=== PATIENT | male | born 1965 | race Caucasian/White ===

== ENCOUNTER 2024-12-28 15:41 | Emergency (ER) | payer OTHER, SELFPAY ==
--- NOTE | ~2024-12-28 | CT_ITS ---
EXAMINATION: CT abdomen pelvis wo con DATE: 12/28/2024 18:00 INDICATION: flank pain TECHNIQUE: Computed tomography (CT) of the abdomen and pelvis was performed without intravenous contr ast. Automated exposure control and iterative reconstruction technique were employed. The dose-length product was 299.88 mGy-cm. COMPARISON: 08/03/2007. FINDINGS: Lower thorax: Small volume pericardial fluid. Liver: Normal. Biliary/Gallbladder: Gallbladder is normal. No bile duct dilation. Pancreas: No mass or duct dilation. Spleen: Normal. Adrenals:No mass. Kidneys: 6 mm calcification at the left UPJ. Moderate left pelviectasis and caliectasis. Moderate lef t perinephric stranding. Mild right perinephric stranding. Multiple additional nonobstructing bilater al renal calcifications. GI tract: Small hiatal hernia. Uncomplicated duodenal diverticulum. No small or large bowel dilation. Normal appendix. Diverticulosis without diverticulitis. Mesentery/Peritoneum: No ascites, mass, or free air. Retroperitoneum: No mass. Pelvis: Normal urinary bladder. Mild prostatomegaly.. Soft Tissues: Small uncomplicated appearing fat-containing umbilical and bilateral inguinal hernias. Bones: No acute osseous finding. IMPRESSION: Trace pericardial fluid. 6 mm left UPJ stone causing moderate obstructive uropathy. Reviewed, dictated and finalized at location K.
--- NOTE | ~2024-12-28 | XR_ITS ---
EXAM: XR abdomen/kub 1V DATE: 12/28/2024 18:37 HISTORY: Kidney stone . COMPARISON: 08/03/2007; CT abdomen pelvis 12/28/2024. FINDINGS: Clear lung bases. Normal bowel gas pattern. No organomegaly. Right midpole calcification. 5 mm calcification at the level of L3-4 corresponding to the left UPJ stone seen in the prior CT. The left inferior pole nephrolith is not confidently identified. Lumbar degenerative disc disease. IMPRESSION: 5 mm left UPJ stone. Reviewed, dictated and finalized at location K. IMPRESSION: 5 mm left UPJ stone.
[2024-12-28 16:04] VITALS: BP 173/119; PULSE 77; RESP 20; TEMP 36.1; O2SAT 97
[2024-12-28 17:15] LABS: Hematocrit 41.8 % (42.0-52.0); Hemoglobin 14.2 g/dL (14.0-18.0); Immature Granulocyte Percent A 0.2 % (0-0.5); Lymphocytes Absolute Auto 1.61 K/mm3 (0.9-3.2); Mean Corpuscular HGB Conc 34.0 g/dl (32-36); Mean Corpuscular Hemoglobin 30.3 pg (26-34); Mean Corpuscular Volume 89.3 fl (80-100); Nucleated Red Blood Cells Absolute Auto 0.000 K/mm3 (0.0-0.012); Nucleated Red Blood Cells Perc 0.0 % (0.0-0.2); Platelet Count Result 209 k/mm3 (150-375); Red Blood Count 4.68 M/mm3 (4.6-6.20); White Blood Count 9.4 K/mm3 (4.5-10.0)
[2024-12-28] MEDS: ONDANSETRON INJ 4 MG/2 ML VIAL IV PUSH (17:26)
[2024-12-28 17:27] LABS: INR 1.0; Prothrombin Time 13.1 Seconds (11.1-14.7)
[2024-12-28 17:28] LABS: Partial Thromboplastin Time 27.2 Seconds (22.3-36.8)
[2024-12-28 17:31] VITALS: BP 169/97; PULSE 97; RESP 18; O2SAT 99
[2024-12-28 17:34] LABS: Add Urine Microscopic? YES; Appearance Urine Clear (Clear); Glucose Urine UA Trace mg/dL (Negative); Leukocyte Esterase Ur Negative LEU/UL (Negative); Nitrate Urine Negative (Negative); Non Pathogenic Casts 0-2; Specific Grav Ur 1.020 (1.001-1.035)
[2024-12-28 17:37] LABS: Alanine Aminotransferase 20 U/L (6-50); Albumin Level 4.3 g/dL (3.5-5.1); Alkaline Phosphatase 49 U/L (38-126); Anion Gap 6 mmol/L (4-12); Aspartate Amino Transferase 25 U/L (17-59); Bilirubin,Total 0.9 mg/dL (0.2-1.3); Blood Urea Nitrogen 22 mg/dL (9-20); Calcium 9.1 mg/dL (8.4-10.2); Carbon Dioxide 27 mmol/L (22-30); Chloride 101 mmol/L (98-107); Estimated CRCL calculation 47 ml/min; Estimated Glomerular Filt Rate 42; Glucose 115 mg/dL (65-110); Potassium 4.1 mmol/L (3.4-5.0); Sodium 134 mmol/L (137-145); Total Protein 7.6 g/dL (6.3-8.2)
[2024-12-28] MEDS: LACTATED RINGERS 1,000 ML 999 ML IV CONT (17:47)
[2024-12-28] MEDS: HYDROmorphone HCL INJ (*CRX) 2 MG/ML VIAL 1 MG IV PUSH (17:50)
--- NOTE | 2024-12-28 18:20 | ED.GENADULT ---
HPI - General Adult General Chief complaint: Back Pain/Injury Stated complaint: left back pain Time Seen by Provider: 12/28/24 16:52 History of Present Illness HPI narrative: 59-year-old male presented to the emergency department for evaluation for left flank pain. Patient does have a prior history of kidney stones approximately 10 years ago. Patient suspects he was not able to pass the stone that time and did have lithotripsy done. Patient began having has current left flank pain Monday and the pain did resolve on Monday and then came back again today. Patient states the pain does radiate to his left lower quadrant. Related Data Allergies Allergy/AdvReac Type Severity Reaction Status Date / Time No Known Allergies Allergy Verified 12/28/24 17:32 Review of Systems Review of Systems: All systems reviewed & are unremarkable except as noted in HPI and below PMFSH Past Medical History Medical History BMI 28.0-28.9,adult Onychomycosis Tinea corporis Skin cancer screening Screening for prostate cancer Mood altered Anxiety and depression Mixed hyperlipidemia BMI 27.0-27.9,adult Family History Family History Father Malignant neoplasm of prostate Scoliosis Social History Social History (Updated 10/03/24 @ 11:03 by Emilia Isabel) Smoking status: Never smoker Alcohol intake: current Do You Feel Safe in your Home?: Yes Lack of Transportation: No Lack of Food: Never True Current Housing: I Have Housing Concerned About Future Housing: No Difficulty Paying Gas/Electric Bills: No Difficulty Paying for Meds: No Currently Unemployed: No Education: Bachelor's Degree Difficulty w/ Childcare or Family Care: No Exam Narrative: APPEARANCE: Uncomfortable pain. HEAD: normocephalic, atraumatic. EYES: PERRLA/EOMI, conjunctivae clear. NOSE: Normal no drainage EARS:TMS clear with good light reflex. THROAT: Pharynx clear, no exudate. NECK: Supple. No adenopathy, no masses. RESPIRATORY: Airway patent, respirations nonlabored. Clear to auscultation bilaterally, no rales, rhonchi, wheezing. CARDIOVASCULAR: Regular rate and rhythm without murmurs rubs or gallops. ABDOMINAL: Left CVA pain without significant tenderness to palpation, left lower quadrant pain without significant tenderness to palpation MUSCULOSKELETAL: Moves all extremities. Strength/ROM intact, No edema, No calf tenderness. NEURO: Alert. Cranial nerves II through XII intact. Grossly intact SKIN: Warm, dry. Normal Color Course Vital Signs Vital signs: Vital Signs Temperature 97 F L 12/28/24 16:04 Pulse Rate 77 12/28/24 16:04 Respiratory Rate 20 12/28/24 16:04 Blood Pressure 173/119 H 12/28/24 16:04 Pulse Oximetry 97 12/28/24 16:04 Oxygen Delivery Room Air 12/28/24 16:04 Temperature 97 F L 12/28/24 16:04 Pulse Rate 78 12/28/24 18:42 Respiratory Rate 20 12/28/24 18:42 Blood Pressure 150/94 H 12/28/24 18:42 Pulse Oximetry 95 12/28/24 18:42 Oxygen Delivery Room Air 12/28/24 16:04 Medical Decision Making MDM Narrative Medical decision making narrative: 59-year-old male present to the emergency department for evaluation for left flank pain. Patient is currently afebrile with no leukocytosis hemoglobin 14.2. INR 1.1. Patient does have a mild NIKITA with a creatinine of 1.68. Patient states he was dehydrated from being ceiling. Patient is still making urine. Patient was treated with a L of lactated Ringer's. Patient was also treated with 1 mg of IV Dilaudid 4 mg of IV Zofran. Patient does feel improved with treatment. Patient does have hematuria on his UA with no underlying evidence of infection. Patient does have a 6 mm UPJ left-sided ureteral calculi. Discussed that the stone was unlikely to pass and patient will most likely need a procedure to help pass the stone. Patient prefers to have outpatient follow-up with Urology on Monday. He will be provided medications for pain control and nausea control for home and he and his were educated on reasons to return to the emergency department. Differential Diagnosis Differential Diagnosis: Stone, urinary tract infection, septic calculi, colitis, diverticular Vital Signs Vital Signs: Vital Signs Temperature 97 F L 12/28/24 16:04 Pulse Rate 77 12/28/24 16:04 Respiratory Rate 20 12/28/24 16:04 Blood Pressure 173/119 H 12/28/24 16:04 Pulse Oximetry 97 12/28/24 16:04 Oxygen Delivery Room Air 12/28/24 16:04 Temperature 97 F L 12/28/24 16:04 Pulse Rate 78 12/28/24 18:42 Respiratory Rate 20 12/28/24 18:42 Blood Pressure 150/94 H 12/28/24 18:42 Pulse Oximetry 95 12/28/24 18:42 Oxygen Delivery Room Air 12/28/24 16:04 Lab Data Lab results reviewed: Yes I reviewed the patient's lab results. 12/28/24 17:10 12/28/24 17:10 Labs: Lab Results 12/28/24 12/28/24 Range/Units 17:10 17:24 WBC 9.4 (4.5-10.0) K/mm3 RBC 4.68 (4.6-6.20) M/mm3 Hgb 14.2 (14.0-18.0) g/dL Hct 41.8 L (42.0-52.0) % MCV 89.3 (80-100) fl MCH 30.3 (26-34) pg MCHC 34.0 (32-36) g/dl RDW 13.8 (11.5-14.5) % Plt Count 209 (150-375) k/mm3 MPV 9.9 (7.4-10.4) fl Immature Gran % (Auto) 0.2 (0-0.5) % Neut % (Auto) 73.9 H (45.5-73.1) % Lymph % (Auto) 17.2 L (18.3-44.2) % [place] % (Auto) 7.3 (2.6-8.5) % Eos % (Auto) 1.0 (0-4.4) % Baso % (Auto) 0.4 (0.2-1.2) % Lymph # (Auto) 1.61 (0.9-3.2) K/mm3 [place] # (Auto) 0.7 H (0.1-0.6) K/mm3 Eos # (Auto) 0.1 (0-0.3) K/mm3 Baso # (Auto) 0.0 (0.0-0.1) K/mm3 Abs Immat Gran (auto) 0.02 (0.00-0.031) K/mm3 Absolute Neuts (auto) 6.9 H (1.3-6.7) K/mm3 Absolute Nucleated RBC 0.000 (0.0-0.012) K/mm3 Nucleated RBC % 0.0 (0.0-0.2) % PT 13.1 (11.1-14.7) Seconds INR 1.0 APTT 27.2 (22.3-36.8) Seconds Sodium 134 L (137-145) mmol/L Potassium 4.1 (3.4-5.0) mmol/L Chloride 101 (98-107) mmol/L Carbon Dioxide 27 (22-30) mmol/L Anion Gap 6 (4-12) mmol/L BUN 22 H (9-20) mg/dL Creatinine 1.68 H (0.7-1.3) mg/dL Estim Creat Clear Calc 47 ml/min Estimated GFR 42 L (59 - ) Glucose 115 H (65-110) mg/dL Calcium 9.1 (8.4-10.2) mg/dL Total Bilirubin 0.9 (0.2-1.3) mg/dL AST 25 (17-59) U/L ALT 20 (6-50) U/L Alkaline Phosphatase 49 (38-126) U/L Total Protein 7.6 (6.3-8.2) g/dL Albumin 4.3 (3.5-5.1) g/dL Urine Color Yellow (Yellow) Urine Appearance Clear (Clear) Urine pH 7.5 (5.0-9.0) Ur Specific [place] 1.020 (1.001-1.035) Urine Protein Negative (Negative) mg/dL Urine Glucose (UA) Trace H (Negative) mg/dL Urine Ketones Negative (Negative) mg/dL Ur Blood (Man) 1+ H (Negative) Urine Nitrate Negative (Negative) Urine Bilirubin Negative (Negative) Urine Urobilinogen 1.0 (<2.0) mg/dL Leukocyte Esterase Rfl Negative (Negative) CHIKA/UL Urine RBC 6-10 H (0-2) /hpf Urine WBC 0-5 (0-3) /hpf Ur Squamous Epith Cells None seen (Few) /hpf Urine Bacteria None seen /hpf Urine Casts 0-2 Imaging Data Radiologist's impression: Impressions Abdomen/Pelvis CT 12/28/24 18:01 IMPRESSION: Trace pericardial fluid. 6 mm left UPJ stone causing moderate obstructive uropathy. Abdomen X-Ray 12/28/24 18:40 IMPRESSION: 5 mm left UPJ stone. Discharge Plan Discharge Clinical Impression: Calculus, ureteral Patient Disposition: Home Condition: Stable Instructions: Antibiotic Form, Kidney Stones (ED), Renal Colic (ED), How to Strain Your Urine (ED), Flank Pain (ED) Additional Instructions: You were offered admission for pain control but you preferred to go home with medications for pain control and to have outpatient follow-up with Urology. Strain your urine as instructed. Zofran for nausea control. [place] as needed for pain control. Flomax as directed to help you pass the stone. If you have any worsening symptoms including fever or uncontrolled pain then return to the emergency department. Have close follow-up with Urology. Patient Language: South African Prescriptions: New hydrocodone-acetaminophen 5-325 mg tablet 1 tablet PO Q12H PRN (Reason: pain) Qty: 14 0RF tamsulosin [Flomax] 0.4 mg capsule 0.4 mg PO DAILY 14 Days Qty: 14 0RF ondansetron 4 mg tablet,disintegrating 4 mg PO Q8H PRN (Reason: nausea and vomiting) Qty: 14 0RF Follow-up/Referrals: William Lora MD [Physician] - Juan Carlos Lovelace MD [Primary Care Provider] -
[2024-12-28] MEDS: HYDROcodone/acetaminophen (*CRX) 10-325 MG TABLET 1 TAB PO (18:40)
[2024-12-28] MEDS: TAMSULOSIN HCL 0.4 MG CAPSULE PO (18:40)
[2024-12-28 18:42] VITALS: BP 150/94; PULSE 78; RESP 20; O2SAT 95
== END 2024-12-28 19:03 | disposition home or self-care (01) ==
PROVIDERS: Emergency Provider Emergency Medicine; PCP Family Medicine
DX: N20.1 Calculus of ureter (principal); E78.2 Mixed hyperlipidemia; F41.8 Other specified anxiety disorders
CPT/HCPCS: 36415; 74018; 74176; 80053; 81001; 85025; 85610; 85730; 96361; 96374; 96375; 99284; A9270; J1171; J2405; J7120

== ENCOUNTER 2024-12-30 13:51 | Outpatient (CLI) | payer OTHER, SELFPAY ==
--- NOTE | ~2024-12-30 | XR_ITS ---
XR abdomen/kub 1V 12/30/2024 14:05 Indication: Preop ESWL Procedure: KUB Comparison: 12/28/2024 Findings: Bowel gas pattern nonobstructive. There are stones in the lower pole left kidney. Bowel gas pattern nonobstructive. There is a possible left ureteral stone at the L4 level. There is calcificat ion pelvis which may represent a bladder stone located centrally. Moderate lumbar spondylosis. Impression: 1: Left nephrolithiasis with possible left ureteral bladder stones. Reviewed, dictated and finalized at location A. Impression: 1: Left nephrolithiasis with possible left ureteral bladder stones.
== END 2024-12-30 13:52 | disposition home or self-care (01) ==
PROVIDERS: PCP Family Medicine; Visit Provider Urology
DX: N20.0 Calculus of kidney (principal)
CPT/HCPCS: 74018

== ENCOUNTER 2025-01-03 00:11 | Day surgery (SDC) | payer OTHER, SELFPAY ==
[2024-12-31 11:48] VITALS: BMI 28.5
--- NOTE | 2024-12-31 11:55 | PC.NURSE ---
Report to the Outpatient Waiting Room, entrance under the green pavilion located off [facility], at time _1030_ on date _[id number]_. Planned Procedure Time: _1230_.? Time changes happen often and if your time is changed the preop area will call you the afternoon before. - You and your visitor will be asked to self-screen and do not enter if you have any COVID symptoms. Please call surgeon if you need to reschedule. - A mask is optional within the hospital at this time. Patients may have clear liquids (water, carbonated beverages, clear teas, apple juice) until 3 hours prior to surgery with a maximum of 20 ounces. - No food from midnight until time of surgery and no smoking, or chewing tobacco (or any form of nicotine). No chewing gum, candy or mints. Take only the following medications with a SIP of water on the morning of surgery: ___Ok to use hydrocodone or zofran if needed.____ DO NOT STOP ANY OF YOUR OTHER PRESCRIPTION MEDICATIONS PRIOR TO SURGERY EXCEPT THE FOLLOWING Hold all vitamins and supplements for 3 days per anesthesiologist. Medications to discontinue per physician Date to take last dose Please no make-up, nail guyanese, hairspray, perfume, deodorant, or body powder the day of surgery.? No jewelry (including any body piercings) or valuables the day of surgery, leave them at home.? Please take a shower or bath the night before, or the morning of, surgery with an antibacterial soap.? Wear comfortable, loose fitting clothing.? - Jewelry must be removed prior to entering the operating room.? Rings and piercings that are not removed may be cut off. - The hospital will not accept responsibility for valuables.? - Please leave all valuables, including medications, at home the day of surgery. If you are going home after surgery, a licensed delivery motorcycle driver must drive you home.? - NO public transportation without another adult if you receive anesthesia. - We recommend that an adult stay with you for 24 hours following discharge. - We also recommend that you do not drive, make important decision, drink alcoholic beverages, or take any drugs that were not prescribed by your health care provider for at least 24 hours after your discharge time. Follow any additional instructions given to you from your surgeon. Telephone instructions given to __Chris___and asked if any additional questions and then verbalized understanding. Patient advised to call surgeon office or pre surgery nurse liaison [phone] if any additional questions.
[2025-01-03] VITALS (10 sets, daily range): BP systolic 110–142; BP diastolic 65–95; PULSE 75–97; RESP 12–17; TEMP 36.2–36.4; O2SAT 97–100; BMI 28.2
--- NOTE | ~2025-01-03 | XR_ITS ---
XR abdomen/kub 1V 01/03/2025 11:04 Indication: Preop ESWL Procedure: KUB Comparison: 12/30/2024 Findings: There are bilateral renal stones. There is a left proximal ureteral stone at the L4-5 level . Bowel gas pattern nonobstructive. Moderate colonic fecal loading. There are pelvic phleboliths. Impression: 1: Bilateral renal and left ureterolithiasis. Reviewed, dictated and finalized at location B. Impression: 1: Bilateral renal and left ureterolithiasis.
--- NOTE | 2025-01-03 06:19 | WPDHPUPDATE1 ---
History and Physical Update Update Date/Time: 01/03/25 06:19 History and Physical has been reviewed, including an updated exam of the patient. There are NO changes in the patient's condition. Risks, benefits, and alternatives have been discussed and questions answered. Patient agrees to proceed with procedure.
[2025-01-03] MEDS: LACTATED RINGERS 1,000 ML 30 ML IV CONT ×2 (11:30→14:10)
--- NOTE | 2025-01-03 12:01 | WPDANESEPPF ---
Anes - Initial Pre Proc Eval Procedure: Operation Date: 01/03/25 12:30 Proposed Procedures p Left Extracorporeal Shock Wave Lithotripsy - Tunde Finney MD Date/Time: 01/03/25 12:01 Surgeon: Tunde Finney MD Pre Op Diagnosis: Lt Kidney Stone Patient Data Age: 59 Gender: M Height: 1.83 m Weight: 94.4 kg Last Vital Signs Temp 36.4 C 01/03/25 11:15 Pulse 82 01/03/25 11:15 Resp 16 01/03/25 11:15 BP 125/72 01/03/25 11:15 Pulse Ox 97 01/03/25 11:15 O2 Del Method Room Air 01/03/25 11:15 Allergies Allergy/AdvReac Type Severity Reaction Status Date / Time No Known Allergies Allergy Verified 01/03/25 11:50 Home Medications ?Medication ?Instructions ?Recorded ?Confirmed ?Type hydrocodone 5 mg-acetaminophen 325 1 tablet PO Q12H PRN pain #14 tabs 12/28/24 12/31/24 Rx mg tablet ondansetron 4 mg disintegrating 4 mg PO Q8H PRN nausea and 12/28/24 01/03/25 Rx tablet vomiting #14 tabs tamsulosin 0.4 mg capsule (Flomax) 0.4 mg PO DAILY 14 days #14 caps 12/28/24 01/03/25 Rx Patient hx anesthesia problems: none Family hx anesthesia problems: none Results Review: All pre-operative results and documents have been reviewed as part of the pre-operative evaluation. COUNTS INCLUDE 234 BEDS AT THE [facility] Past Medical History Medical History BMI 28.0-28.9,adult Onychomycosis Tinea corporis Skin cancer screening Screening for prostate cancer Mood altered Anxiety and depression Mixed hyperlipidemia BMI 27.0-27.9,adult Family History Family History Father Malignant neoplasm of prostate Scoliosis Social History Social History Smoking status: Never smoker Tobacco type: cigars Additional smoking assessment comments: 1 or 2 a year Alcohol intake: current Do You Feel Safe in your Home?: Yes Lack of Transportation: No Lack of Food: Never True Current Housing: I Have Housing Concerned About Future Housing: No Difficulty Paying Gas/Electric Bills: No Difficulty Paying for Meds: No Currently Unemployed: No Education: Bachelor's Degree Difficulty w/ Childcare or Family Care: No Living arrangements: with family Spiritual care concerns: No Anes - Eval Final PreProcedure Day of Procedure 01/03/25 12:01 Patient weight: overweight Heart: regular rate and rhythm Lungs: clear to auscultation Airway: Mallampati scale class II Neurological: alert and oriented Last oral intake: >/= 8 hours ASA classification: II Emergent: no Anesthetic plan: proceed Anesthesia type and monitoring: general LMA and standard monitoring Results Review: All pre-operative results and documents have been reviewed as part of the pre-operative evaluation. Informed Consent: The patient's anesthetic plan and its attendant risks and benefits were discussed with the patient/family/POA. Questions were solicited and answers provided to the satisfaction of the patient/family/POA.
[2025-01-03] MEDS: ceFAZolin 2 GM in SODIUM CHLORIDE 0.9% IV 50 ML 100 ML IVPB (13:11)
--- NOTE | 2025-01-03 13:28 | W.PM.PROC2 ---
Procedure Note - Detailed Date of Procedure 01/03/25 Pre-op Diagnosis Left ureteral stone Post-op Diagnosis Same Procedure Performed Left ESWL Surgeon Tunde Finney MD Anesthesia General Description of Procedure The patient was brought to the operative suite where he was placed in the supine position on the Dornier lithotripsy table. The focal point of the lithotripter was placed at a 5-6mm left mid-ureteral calculus. A total of 3000 shocks were delivered at a power setting of 2-5. There appeared to be good fragmentation of the stone. The patient tolerated the procedure well and was taken to the recovery room in good condition. Drains No Packing No Pathology Yes Complications No immediate complications Disposition PACU
--- NOTE | 2025-01-03 14:12 | ECG_ITS ---
Test Date: 2025-01-03 14:19:25 Measurements Intervals [place] Rate: 101 P: 79 ME: 204 QRS: 13 QRSD: 98 T: 56 QT: 376 QTc: 489 Interpretive Statements SINUS RHYTHM WITH OCCASIONAL SUPRAVENTRICULAR PREMATURE COMPLEXES AND VENTRICULAR TRIPLETS AND VENTRICULAR COUPLETS CANNOT R/O SEPTAL INFARCT, AGE INDETERMINATE ABNORMAL ECG No previous ECG available for comparison Electronically Signed On 01-03-2025 14:24:45 CDT by Remberto Zuluaga D.O.
[2025-01-03 14:31] LABS: Alanine Aminotransferase 18 U/L (6-50); Albumin Level 3.4 g/dL (3.5-5.1); Alkaline Phosphatase 46 U/L (38-126); Anion Gap 6 mmol/L (4-12); Aspartate Amino Transferase 20 U/L (17-59); Bilirubin,Total 0.7 mg/dL (0.2-1.3); Blood Urea Nitrogen 19 mg/dL (9-20); Calcium 8.6 mg/dL (8.4-10.2); Carbon Dioxide 24 mmol/L (22-30); Chloride 107 mmol/L (98-107); Estimated CRCL calculation 88 ml/min; Estimated Glomerular Filt Rate > 60; Glucose 123 mg/dL (65-110); Potassium 4.4 mmol/L (3.4-5.0); Sodium 137 mmol/L (137-145); Total Protein 6.5 g/dL (6.3-8.2)
--- NOTE | 2025-01-03 14:52 | SUR.PHASEI ---
1430: Dr. Caballero notified of EKG results. 1440: Dr Nevarez at bedside to assess patient and EKG. Patient having frequent PVCs in couplets and triplets. Per Dr. Nevarez patient is okay to go next door to outpatient as long as magnesium is WNL. 1448: Dr Caballero at bedside assessing patient and rhythm. Per Dr. Caballero, patient is okay to d/c home.
[2025-01-03 14:58] LABS: Magnesium 1.8 mg/dL (1.6-2.3)
--- NOTE | 2025-01-03 14:59 | SUR.PHASEI ---
Dr. Nevarez notified face to face of mag of 1.8. Per roman OWUSU for patient to d/c home.
== END 2025-01-03 15:50 | disposition home or self-care (01) ==
PROVIDERS: Anesthesiology; PCP Family Medicine; Visit Provider Urology
PROC: (CPT 50590; principal; 2025-01-03 12:30)
DX: N20.1 Calculus of ureter (principal)
CPT/HCPCS: 50590; 36415; 74018; 80053; 83735; 93005; J0690; J2003; J2405; J2704; J3010; J7120

== ENCOUNTER 2025-01-13 11:14 | Outpatient (CLI) | payer OTHER, SELFPAY ==
--- NOTE | ~2025-01-13 | XR_ITS ---
XR abdomen/kub 1V 01/13/2025 11:30 Indication: Renal stone Procedure: KUB Comparison: 01/03/2025 Findings: There are bilateral renal stones. There is a left UPJ stone. Bowel gas pattern nonobstructi ve. Moderate-severe lumbar spondylosis. Impression: 1: Probable left UPJ stone at the L2-3 level. Bilateral nephrolithiasis. Reviewed, dictated and finalized at location A. Impression: 1: Probable left UPJ stone at the L2-3 level. Bilateral nephrolithiasis.
== END 2025-01-13 11:15 | disposition home or self-care (01) ==
PROVIDERS: PCP Family Medicine; Visit Provider Urology
DX: N20.1 Calculus of ureter (principal)
CPT/HCPCS: 74018

== ENCOUNTER 2025-04-18 00:01 | Day surgery (SDC) | payer OTHER, SELFPAY ==
[2025-04-10 09:31] VITALS: BMI 28.5
[2025-04-18 07:32] VITALS: BP 127/88; PULSE 90; RESP 18; TEMP 36.3; O2SAT 98
[2025-04-18] MEDS: LACTATED RINGERS 1,000 ML 150 ML IV CONT (07:42)
--- NOTE | 2025-04-18 08:33 | PM.IMHP ---
H&P: HPI History of Present Illness Date/Time: 04/18/25 08:33 Chief Complaint: Screening colonoscopy Narrative: This is the patient's 2nd screening colonoscopy. There are no GI symptoms and there is no family history of colorectal cancer. Review of Systems Review of Systems: All systems reviewed & are unremarkable except as noted in HPI and below PMFSH Past Medical History Medical History BMI 28.0-28.9,adult Onychomycosis Tinea corporis Skin cancer screening Screening for prostate cancer Mood altered Anxiety and depression Mixed hyperlipidemia BMI 27.0-27.9,adult Family History Family History Father Malignant neoplasm of prostate Scoliosis Social History Social History (Updated 01/14/25 @ 10:02 by Sushma Hung MA) Smoking status: Current some day smoker Tobacco type: cigars Additional smoking assessment comments: 1 or 2 a year Alcohol intake: never Substance use: never Substance use type: does not use Do You Feel Safe in your Home?: Yes Lack of Transportation: No Lack of Food: Never True Current Housing: I Have Housing Concerned About Future Housing: No Difficulty Paying Gas/Electric Bills: No Difficulty Paying for Meds: No Currently Unemployed: No Education: Bachelor's Degree Difficulty w/ Childcare or Family Care: No Living arrangements: with family Spiritual care concerns: No Meds Home Medications and Allergies Home Medications ?Medication ?Instructions ?Recorded ?Confirmed ?Type atorvastatin 20 mg tablet 20 mg PO QPM 04/18/25 04/18/25 History carvedilol 3.125 mg tablet 3.125 mg PO Q12H 04/18/25 04/18/25 History losartan 25 mg tablet 25 mg PO DAILY 04/18/25 04/18/25 History Allergies Allergy/AdvReac Type Severity Reaction Status Date / Time No Known Allergies Allergy Verified 04/18/25 07:31 Vital Signs Vital Signs - 24 hr 04/18/25 07:32 Temperature 97.3 F L Pulse Rate 90 Respiratory Rate 18 Blood Pressure 127/88 Pulse Oximetry 98 Oxygen Delivery Room Air Exam Const: General: cooperative and healthy appearing Resp: Effort & Inspection: normal respiratory effort and able to speak in complete sentences Auscultation: clear to auscultation bilaterally Cardio: Rate: regular rate Rhythm: regular rhythm GI: Inspection: normal to inspection GI Palp: No No hepatosplenomegaly present Auscultation: normal bowel sounds Rectal Exam: deferred Skin: General skin exam: normal color Psych: Appearance: grossly normal Mental Status: mental status grossly normal Assessment and Plan Assessment and plan (1) Encounter for screening colonoscopy: Code(s): Z12.11 - Encounter for screening for malignant neoplasm of colon Status: Acute Assessment and Plan: The patient is deemed a good candidate for the procedure. Consent signed. Will proceed.
--- NOTE | 2025-04-18 08:37 | WPDANESEPPF ---
Anes - Initial Pre Proc Eval Procedure: Operation Date: 04/18/25 08:30 Proposed Procedures p Screening Colonoscopy - Jcarlos Raines MD Date/Time: 04/18/25 08:37 Surgeon: Jcarlos Raines MD Pre Op Diagnosis: Personal hx of colon polyps Patient Data Age: 59 Gender: M Height: 1.83 m Weight: 95.2 kg Last Vital Signs Temp 36.3 C L 04/18/25 07:32 Pulse 90 04/18/25 07:32 Resp 18 04/18/25 07:32 BP 127/88 04/18/25 07:32 Pulse Ox 98 04/18/25 07:32 O2 Del Method Room Air 04/18/25 07:32 Allergies Allergy/AdvReac Type Severity Reaction Status Date / Time No Known Allergies Allergy Verified 04/18/25 07:31 Home Medications ?Medication ?Instructions ?Recorded ?Confirmed ?Type atorvastatin 20 mg tablet 20 mg PO QPM 04/18/25 04/18/25 History carvedilol 3.125 mg tablet 3.125 mg PO Q12H 04/18/25 04/18/25 History losartan 25 mg tablet 25 mg PO DAILY 04/18/25 04/18/25 History Patient hx anesthesia problems: none Family hx anesthesia problems: none Results Review: All pre-operative results and documents have been reviewed as part of the pre-operative evaluation. FOR[facility]LY [facility], [facility] Past Medical History Medical History BMI 28.0-28.9,adult Onychomycosis Tinea corporis Skin cancer screening Screening for prostate cancer Mood altered Anxiety and depression Mixed hyperlipidemia BMI 27.0-27.9,adult Family History Family History Father Malignant neoplasm of prostate Scoliosis Social History Social History (Updated 01/14/25 @ 10:02 by Sushma Hung MA) Smoking status: Current some day smoker Tobacco type: cigars Additional smoking assessment comments: 1 or 2 a year Alcohol intake: never Substance use: never Substance use type: does not use Do You Feel Safe in your Home?: Yes Lack of Transportation: No Lack of Food: Never True Current Housing: I Have Housing Concerned About Future Housing: No Difficulty Paying Gas/Electric Bills: No Difficulty Paying for Meds: No Currently Unemployed: No Education: Bachelor's Degree Difficulty w/ Childcare or Family Care: No Living arrangements: with family Spiritual care concerns: No Anes - Eval Final PreProcedure Day of Procedure 04/18/25 08:37 Patient weight: overweight Heart: regular rate and rhythm Lungs: clear to auscultation Airway: Mallampati scale class II Neurological: alert and oriented Last oral intake: >/= 8 hours ASA classification: II Emergent: no Anesthetic plan: proceed Anesthesia type and monitoring: general GIVS and standard monitoring Results Review: All pre-operative results and documents have been reviewed as part of the pre-operative evaluation. Informed Consent: The patient's anesthetic plan and its attendant risks and benefits were discussed with the patient/family/POA. Questions were solicited and answers provided to the satisfaction of the patient/family/POA.
--- NOTE | 2025-04-18 08:59 | S_PTH ---
PATIENT: Juvencio Shields LOC: [facility] U#:[id number] AGE/SX: 59/M ROOM: RE04/18/[address]: Jcarlos Raines MD : 1965 BED: DIS: 04/18/2025 SPEC #: [id number] RECD: 04/18/25 11:17 STATUS: ADA REQ #: [id number] RICO: 04/18/25 08:[address]: Jcarlos Raines DEPT: [facility] Surgical RECD BY: Nisa Loomis ENTERED: 04/18/25 11:18 SP TYPE: Surgical OTHR DR: Juan Carlos Lovelace MD Tissues: A - Colon Polypectomy Procedures: Hematoxylin and Eosin Stain Gross and Microscopic Level 4
[2025-04-18 09:00] VITALS: BP 120/74; PULSE 83; RESP 20; O2SAT 97
[2025-04-18 09:10] VITALS: BP 109/75; PULSE 77; RESP 23; O2SAT 98
[2025-04-18 09:20] VITALS: BP 114/78; PULSE 73; RESP 16; O2SAT 100
== END 2025-04-18 09:27 | disposition home or self-care (01) ==
PROVIDERS: PCP Family Medicine; Referring Provider Family Medicine; Visit Provider Internal Medicine Gastroenterology
PROC: 0DJD8ZZ Inspection of Lower Intestinal Tract, Via Natural or Artificial Opening Endoscopic (ICD-10-PCS; CPT 45378; principal; 2025-04-18 08:30)
DX: Z12.11 Encounter for screening for malignant neoplasm of colon (principal); K63.5 Polyp of colon; K57.30 Diverticulosis of large intestine without perforation or abscess without bleeding; K64.8 Other hemorrhoids
CPT/HCPCS: 45385; 88305; J2704; J7120